=== PATIENT | female | born 1965 | race African-American/Black ===

== ENCOUNTER 2021-02-02 14:22 | Outpatient (CLI) | payer BC | END 2021-02-02 14:23 | disposition home or self-care (01) | LOC: CSHULT 14:22 | PROVIDERS: ATTEND Family Medicine | DX: M79.605 Pain in left leg (principal) ==

== ENCOUNTER 2021-03-04 02:32 | Emergency (ER) | payer BC ==
[2021-03-04] MEDS ORDERED: Ibuprofen 200 MG TAB ONE ×2 (03:20→03:21)
== END 2021-03-04 03:25 | disposition home or self-care (01) ==
LOC: CSHERS 02:32
DX: J01.90 Acute sinusitis, unspecified (principal); Z79.899 Other long term (current) drug therapy
CPT/HCPCS: 99283

== ENCOUNTER 2021-08-01 13:48 | Outpatient (CLI) | payer BC | END 2021-08-01 13:49 | LOC: CSHRAD 13:48 | PROVIDERS: ATTEND Neurological Surgery | DX: M54.50 Low back pain, unspecified (principal); M47.816 Spondylosis without myelopathy or radiculopathy, lumbar region; Z98.890 Other specified postprocedural states | CPT/HCPCS: 72100 ==

== ENCOUNTER 2023-05-18 07:54 | Outpatient (CLI) | payer MEDICARE, BC | END 2023-05-18 07:55 | disposition home or self-care (01) | LOC: CSHMRI 07:54 | PROVIDERS: ATTEND Student in an Organized Health Care Education/Training Program | DX: M47.26 Other spondylosis with radiculopathy, lumbar region (principal); Z98.890 Other specified postprocedural states | CPT/HCPCS: 72148 ==

== ENCOUNTER 2023-12-31 15:34 | Outpatient (CLI) | payer MEDICARE, BC | END 2023-12-31 15:35 | disposition home or self-care (01) | LOC: CSHRAD 15:34 | PROVIDERS: ATTEND Student in an Organized Health Care Education/Training Program | DX: M25.532 Pain in left wrist (principal); M79.645 Pain in left finger(s); G89.29 Other chronic pain ==